=== PATIENT | male | born 1935 | race Caucasian/White ===

== ENCOUNTER 2019-12-28 14:05 | Inpatient (IN) | payer OTHER ==
[~2019-12-28] VITALS: Ht 170.2 cm; Wt 77.6 kg
[2019-12-28 14:50] LABS: Basophils # (auto) 0.1 10 ^3/uL (0-0.2); Basophils % (auto) 0.6 % (0.0-2.0); Eosinophils # (auto) 0.1 10 ^3/uL (0-0.8); Eosinophils % (auto) 0.5 % (0.0-7.0); Hematocrit 38.5 % (41.0-53.0); Lymphocytes # (auto) 1.9 10 ^3/uL (0.4-5.4); Lymphocytes % (auto) 16.1 % (10.0-50.0); Mean Corpuscular Hgb Conc. 33.7 g/dL (32.0-36.0); Mean Corpuscular Volume 91.9 fL (80.0-100.0); Monocytes # (auto) 0.6 10 ^3/uL (0-1.3); Monocytes % (auto) 5.4 % (0.0-12.0); Neutrophils % (auto) 77.4 % (37.0-80.0); Platelet Count (auto) 335 10^3/uL (140-450); Red Blood Cells 4.19 10^6/uL (4.5-5.90); Red Cell Distribution Width 13.9 % (11.8-14.3); White Blood Cell 11.6 10^3/uL (4.4-10.8)
[2019-12-28 15:09] LABS: INR 1.13 (0.9-1.15); Partial Thromboplastin Time 29.4 sec (23.64-32.05); Potassium 4.7 mmol/L (3.5-5.1)
[2019-12-28 15:13] LABS: Albumin 3.3 g/dL (3.4-5.0); BUN/Creatinine Ratio 23.9; Calcium 9.3 mg/dL (8.5-10.1)
[2019-12-28 15:18] LABS: Bilirubin, Total 0.4 mg/dL (0.2-1.0); Total Protein 7.9 g/dL (6.4-8.2)
[2019-12-28] MEDS ORDERED: HEPARIN DRIP/D5W 100UNITS/ML 250 ML IV SCH (16:27)
[2019-12-28] MEDS ORDERED: MORPHINE SULF INJ 2 MG/ML SYRINGE 1ML IV ONE (16:30)
[2019-12-28] MEDS ORDERED: HEPARIN SODIUM (PORCINE) 5000 UNITS/ML 1ML VIAL IV ONE (16:30)
[2019-12-28] MEDS ORDERED: ONDANSETRON HCL 4 MG/2 ML VIAL IV ONE (16:30)
[2019-12-28] MEDS ORDERED: CLOPIDOGREL 300 MG TAB PO ONE (16:30)
[2019-12-28] MEDS ORDERED: CLOPIDOGREL 300 MG TAB ONE (16:31)
[2019-12-28] MEDS: CLOPIDOGREL BISULFATE 75 MG TAB PO SCH (16:34)
[2019-12-28] MEDS ORDERED: ONDANSETRON HCL 4 MG/2 ML VIAL IV PRN (17:00)
[2019-12-28] MEDS ORDERED: HYDROcodone-ACET 5/325MG TAB PO PRN (17:00)
[2019-12-28] MEDS ORDERED: NITROGLYCERIN 0.4 MG SL TAB SL PRN (17:00)
[2019-12-28] MEDS ORDERED: MORPHINE SULF INJ 2 MG/ML SYRINGE 1ML IV PRN ×2 (17:00)
--- NOTE | 2019-12-28 17:04 | NUR ---
Hospitalist paged at this time. New orders received.
--- NOTE | 2019-12-28 18:03 | NUR ---
Telemetry admit from ER: SALVATORE FALCON admitted to Telemetry unit after SBAR received. Patient oriented to BHAVANA BAIRD, RN primary RN, unit, room, bed, and unit policies regarding patient care and visiting hours. Patient now on continuous telemetry monitoring, tele box # 50. Patient placed on bedside oxygen 2 lpm, patient stated weight and encouraged to call if they need something. All questions and concerns addressed, patient verbalized understanding. VS- temp- 97.6, 20 RR, 96% O2, 162/77 BP, 72 heart rate.
--- NOTE | 2019-12-28 18:34 | NUR ---
CRITICAL Critical Trop- 7.24 Paged medical transcription radiology hospitalist- Ralph Whiteside [employer] notified Paged Dr. Jones, awaiting call back.
[2019-12-28] MEDS: NITROGLYCERIN 50MG/250ML 250 ML IV SCH (19:15)
--- NOTE | 2019-12-28 19:40 | NUR ---
Ralph Whiteside [employer] at bedside. He requested a current 12 lead EKG. EKG performed. Ralph stated that there are no changes form previous EKG but still wont the patient to be transferred to [facility]. Waiting on bed availability. Pt states chest pain is remaining a tolerable /10. Will continue to monitor.
--- NOTE | 2019-12-28 19:44 | NUR ---
Closing note: Patient resting in bed, no S/S of SOB or distress. Chest pain 3/10 at this time. Care endorsed to NOC RN.
[2019-12-28] MEDS: SODIUM CHLORIDE 0.9% 1,000 ML IV SCH (20:01)
[2019-12-28] MEDS: METOPROLOL TARTRATE 25 MG TAB PO SCH (21:26)
[2019-12-28 22:00] VITALS: BP 128/70
--- NOTE | 2019-12-28 23:00 | NUR ---
Pt transferred to [facility] from Tele Report given to [facility] RN then patient moved to room 263 via bed. Pt had no S/S of distress during transfer. Patient states chest pain still 3/10. Family took all patient belongings home before transfer.
[2019-12-28 23:33] LABS: INR 1.13 (0.9-1.15)
[2019-12-28 23:34] LABS: Partial Thromboplastin Time 75.3 sec (23.64-32.05)
--- NOTE | 2019-12-28 23:35 | NUR ---
LAB PTT 75.3 RESULT. NO CHANGE. ORDER ALSO TO STOP PTT AT 5 AM PER MD INFO RELAYED BY NEWSPAPER CLIPPER.
[2019-12-29] VITALS (15 sets, daily range): BP systolic 101–126; BP diastolic 57–79
--- NOTE | 2019-12-29 03:34 | NUR ---
PT APPEARS TO BE RESTING NO S/S OF RESPIRATOR DISTRESS. WILL CONTINUE TO MONITOR.
--- NOTE | 2019-12-29 04:58 | NUR ---
PT- NO BED BATH DENIES WANTING A BATH OR NEW LINEN. WILL MONITOR.
--- NOTE | 2019-12-29 06:24 | NUR ---
MD CALLED TO CLARIFY WHETHER PT GOING TO [facility] AND INFORM ON LAST TROPONIN LEVEL.
--- NOTE | 2019-12-29 07:27 | NUR ---
ENDORSED CARE TO DAY RN PATIENT AWAKE AND WATCHING TELEVISION. NO S/S OF RESP DISTRESS.
--- NOTE | 2019-12-29 07:36 | NUR ---
: Spoke to Dr Jones via phone. Updated MD on labs. Orders received. Plan for cathlab at 1100.
--- NOTE | 2019-12-29 07:45 | NUR ---
OPENING SHIFT NOTE: Received report from NOC RNAkhil. Received patient lying in bed, no S/S of pain. Patient is A&Ox4 and denies pain. Patient on bedside monitor with alarms in place. Patient on 2L NC with O2 sats 95%. Patient currently NPO for left heart cath with Dr Soliman later today. Patient with IVF of NS running at 75ml/hr to left AC #20. Bed in lowest position, rails x2 up and call light within reach. Updated on plan of care. Will continue to monitor q1hr/PRN.
[2019-12-29] MEDS: SODIUM CHLORIDE 0.9% 1,000 ML IV SCH ×2 (08:35→21:06)
[2019-12-29] MEDS ORDERED: LIDOCAINE 2%HCL (LOCAL ANESTH.) INJ 20ML MDV ONE (08:52)
[2019-12-29] MEDS ORDERED: IODIXANOL 320MG/ML 100ML BTL IV ONE (08:53)
[2019-12-29] MEDS ORDERED: ANGIOMAX 250 MG VIAL IV ONE (08:56)
[2019-12-29] MEDS ORDERED: VERAPAMIL 2.5MG/ML INJ 2ML VIAL IV ONE (08:56)
[2019-12-29] MEDS ORDERED: MIDAZOLAM HCL 1MG/1ML-2 ML VIAL ONE (08:56)
[2019-12-29] MEDS ORDERED: SODIUM CHL 0.9% 50 ML ONE (08:56)
[2019-12-29] MEDS ORDERED: fentaNYL CITRATE 100 MCG/2 ML VL ONE (08:56)
--- NOTE | 2019-12-29 08:58 | NUR ---
CATHLAB: Patient taken to cathlab via bed on satellite project site monitor.
--- NOTE | 2019-12-29 10:19 | NUR ---
REPORT CALLED TO PCN. PT TO [facility] ON MONITOR WITH 2 RNS. PT DENIES DISTRESS. VASC BAND IN PLACE. NO SIGNS OF BLEEDING +PMSC. NAD NOTED.
--- NOTE | 2019-12-29 10:39 | NUR ---
Patient returned from cathlab via bed on electronic device monitor. Safeguard band to left wrist with 12ml air in place. No signs of bleeding noted. Patient A&Ox4, denies pain. Place back on bedside monitors and alarms in place. Will continue to monitor.
--- NOTE | 2019-12-29 10:57 | NUR ---
Started to remove air from safeguard band 1ml at a time. No S/S bleeding noted.
--- NOTE | 2019-12-29 11:18 | NUR ---
Removed 1ml of air from safeguard band. No S/S of bleeding noted. Patient with good capillary refill to fingers on left hand.
[2019-12-29] MEDS ORDERED: SODIUM CHLORIDE 0.9% 1,000 ML IV SCH (11:30)
--- NOTE | 2019-12-29 11:45 | NUR ---
Dr Clark at bedside to see patient. Orders received.
[2019-12-29 12:03] LABS: Basophils # (auto) 0.1 10 ^3/uL (0-0.2); Eosinophils # (auto) 0.1 10 ^3/uL (0-0.8); Eosinophils % (auto) 1.1 % (0.0-7.0); Hematocrit 42.9 % (41.0-53.0); Hemoglobin 14.1 g/dL (13.5-17.5); Lymphocytes # (auto) 3.7 10 ^3/uL (0.4-5.4); Lymphocytes % (auto) 29.5 % (10.0-50.0); Mean Corpuscular Hemoglobin 30.9 pg (28.0-32.0); Mean Corpuscular Hgb Conc. 32.9 g/dL (32.0-36.0); Mean Corpuscular Volume 93.8 fL (80.0-100.0); Monocytes % (auto) 7.9 % (0.0-12.0); Neutrophils # (auto) 7.5 10 ^3/uL (1.6-8.6); Neutrophils % (auto) 60.5 % (37.0-80.0); Nucleated Red Blood Cells % 0.1 %; Platelet Count (auto) 330 10^3/uL (140-450); Red Blood Cells 4.57 10^6/uL (4.5-5.90); Red Cell Distribution Width 14.5 % (11.8-14.3); White Blood Cell 12.4 10^3/uL (4.4-10.8)
[2019-12-29 12:22] LABS: BUN/Creatinine Ratio 23.2; Calcium 9.2 mg/dL (8.5-10.1); Magnesium 2.3 mg/dL (1.6-2.6); Potassium 5.3 mmol/L (3.5-5.1)
--- NOTE | 2019-12-29 12:28 | NUR ---
Dr Yamilet Costa to see patient. wants to wait to see if creatine improves before inserting a reid catheter.
[2019-12-29] MEDS: CLOPIDOGREL BISULFATE 75 MG TAB PO SCH (12:34)
[2019-12-29] MEDS: RANOLAZINE ER 500 MG TAB PO SCH ×2 (12:34→21:00)
[2019-12-29] MEDS: METOPROLOL TARTRATE 25 MG TAB PO SCH ×2 (12:35→21:06)
[2019-12-29] MEDS: ASPirin 81 mg TAB PO SCH (12:35)
--- NOTE | 2019-12-29 13:00 | NUR ---
Safeguard fully deflated. No S/S of bleeding noted. Safeguard removed and dry dressing placed.
[2019-12-29 13:04] LABS: Urine Bacteria NONE SEEN /hpf (None Seen); Urine Blood Negative /uL (Negative); Urine Specific Gravity 1.011 (1.001-1.035); Urine WBC <1 /hpf (0 - 3)
[2019-12-29 13:13] LABS: Protein, Urine 23.5 mg/dL (0.0-11.9)
[2019-12-29] MEDS ORDERED: SODIUM ZIRCONIUM CYCL 10 GM PAK PO ONE (15:30)
--- NOTE | 2019-12-29 15:36 | NUR ---
T/C from Dr Yamilet Costa. wants patient to have reid catheter. RN attempted twice, first with 16fr then with 14fr and met resistance upon insertion each time. Paged Dr Yamilet Costa and left voicemail. Patient still can void via urinal without difficulty. Patient able to void via urinal and had ~600ml output. Bladder scan post void noted 138ml. Will continue to monitor.
--- NOTE | 2019-12-29 17:08 | NUR ---
Patient resting in bed. No S/S of distress. Will continue to monitor.
--- NOTE | 2019-12-29 18:57 | NUR ---
END OF SHIFT NOTE: Patient sitting up in bed after eating dinner. No S/S of distress. Patient remains A&Ox4 and denies pain. Patient on bedside monitor with alarms in place. Patient with IVF of NS running at 75ml/hr. Patient still voiding via urinal and unable to start a reid catheter. Patient pending urology consult. Report to be given to oncoming RN.
[2019-12-29] MEDS: NITROGLYCERIN 50MG/250ML 250 ML IV SCH (19:15)
--- NOTE | 2019-12-29 19:52 | NUR ---
received report from day rn poc reviewed
[2019-12-29] MEDS ORDERED: ATORVASTATIN 20 MG TAB PO SCH (22:00)
[2019-12-30 00:01] VITALS: BP 96/58
--- NOTE | 2019-12-30 00:55 | NUR ---
RESTING WITH EYES CLOSED RESP EVEN AND UNLABORED, NO C/O PAIN OR DISCOMFORT
--- NOTE | 2019-12-30 05:52 | NUR ---
UP TO [facility] URINE OUTPUT 800 NO C/O PAIN OR DISCOMFORT
--- NOTE | 2019-12-30 06:34 | NUR ---
AWOKE RESP EVEN AND UNLABORED, CALL LIGHT WITHIN REACH, DENIES PAIN OR DISCOMFORT
--- NOTE | 2019-12-30 06:53 | NUR ---
REPORT GIVEN TO AM NURSE POC REVIEWED
[2019-12-30 07:30] VITALS: BP 138/81
--- NOTE | 2019-12-30 07:30 | NUR ---
Opening Shift Note Assumed care of patient, awake and alert. No S/S of distress/SOB or pain. Patient saturation 98% at 2 LPM oxygen via nasal cannula, decreased to 1 LPM, will continue to monitor. LT wrist dressing dry and intact, no bruising, hematoma or signs of bleeding noted, palpable radial pulses. See interventions for complete assessment. Bed locked on low position, side rails up x2, bed alarms on at all times, call muñoz within reach, instructed on POC and to call for assist PRN, will continue to monitor for changes Q1hr and PRN.
[2019-12-30 07:36] LABS: Basophils # (auto) 0.1 10 ^3/uL (0-0.2); Basophils % (auto) 1.1 % (0.0-2.0); Eosinophils # (auto) 0.3 10 ^3/uL (0-0.8); Eosinophils % (auto) 2.4 % (0.0-7.0); Hematocrit 40.2 % (41.0-53.0); Hemoglobin 13.6 g/dL (13.5-17.5); Lymphocytes # (auto) 2.5 10 ^3/uL (0.4-5.4); Mean Corpuscular Hemoglobin 31.1 pg (28.0-32.0); Mean Corpuscular Volume 91.5 fL (80.0-100.0); Monocytes % (auto) 9.5 % (0.0-12.0); Neutrophils # (auto) 6.5 10 ^3/uL (1.6-8.6); Platelet Count (auto) 262 10^3/uL (140-450); Red Blood Cells 4.39 10^6/uL (4.5-5.90); Red Cell Distribution Width 14.7 % (11.8-14.3); White Blood Cell 10.4 10^3/uL (4.4-10.8)
[2019-12-30 07:49] LABS: Calcium 8.9 mg/dL (8.5-10.1); Potassium 4.9 mmol/L (3.5-5.1)
[2019-12-30 07:57] LABS: BUN/Creatinine Ratio 24.4; Magnesium 2.1 mg/dL (1.6-2.6); Phosphorus 2.7 mg/dL (2.5-4.90)
[2019-12-30] MEDS: ASPirin 81 mg TAB PO SCH (09:26)
[2019-12-30] MEDS: RANOLAZINE ER 500 MG TAB PO SCH (09:26)
[2019-12-30] MEDS: CLOPIDOGREL BISULFATE 75 MG TAB PO SCH (09:27)
[2019-12-30] MEDS: METOPROLOL TARTRATE 25 MG TAB PO SCH (09:27)
[2019-12-30] MEDS ORDERED: ASPI81CH43 PO (11:44)
[2019-12-30] MEDS ORDERED: MET25T PO (11:44)
[2019-12-30] MEDS ORDERED: CLOP75TA28 PO (11:44)
[2019-12-30] MEDS ORDERED: RANO500T PO (11:44)
[2019-12-30] MEDS ORDERED: ATOR20TA50 PO (11:44)
[2019-12-30] MEDS ORDERED: SODIUM BICARBONATE 50ML VIAL 50 ML in SOD CHL 0.45% 1,000 ML IV SCH ×2 (11:45→12:30)
[2019-12-30 11:48] VITALS: BP 126/69
--- NOTE | 2019-12-30 12:19 | NUR ---
Dr Robert Meredith at bedside, updated on patient's status. Patient seen and examined. Plan to discharge patient today.
--- NOTE | 2019-12-30 14:00 | NUR ---
Patient's oxygen discontinued, saturation 92% to 96%, will continue to monitor.
--- NOTE | 2019-12-30 14:08 | NUR ---
Called Dr Tello Perez's office, spoke to Olivia regarding patient's follow-up appointment. Per Olivia, unable to schedule patient at this time, pending authorization from patient's PCP. Patient informed and verbalized understanding.
--- NOTE | 2019-12-30 14:11 | NUR ---
Called Dr Edmundo Soliman's office, spoke to Aleksandra regarding patient's follow-up appointment. Per Aleksandra, unable to schedule patient at this time, pending authorization from PCP. Patient informed to get authorization and call office to schedule, verbalized understanding.
--- NOTE | 2019-12-30 15:12 | NUR ---
assessment Patient is a 84 year old male who is alert and oriented. Patients cognitive abilities are intact. Prior to admission patient lived home with family and functioned independently. Patient informed me he is able to care for his own ADLs. Patients PCP is Dr Juarez. Patient has a fww, but does not use it. Patient has a ss consult for home health. Patient agrees. Per patient he will return home to his prior living arrangements post discharge and family will transport him home. I informed patient he has a right to speak to a social work therapist regarding all care. I informed patient he has a right to participate in any and all discharge planning. Patient does not have a POA and advanced directive. I have offered patient information on POA and advanced directives. I informed the patient the advantages and benefits of having an Advanced Directive. Patient verbalized understanding and agreed to discharge plan. Addendum: 12/30/19 at 1514 by Senia MIRANDA Amended: Links added.
[2019-12-30 15:57] VITALS: BP 136/75
[2019-12-30 16:00] VITALS: BP 136/75
--- NOTE | 2019-12-30 16:10 | NUR ---
Received call from Dr Soliman, updated on patient's status. MD verbalized understanding and states "Patient is cleared to go home, home medications Aspirin 81mg PO daily and Plavix 75 mg PO daily." Orders read back and verified. Will facilitate discharge.
--- NOTE | 2019-12-30 16:25 | NUR ---
[facility] transplant case manager regarding patient's home health and Janet Gann called back stating "It's going to be [facility], telephone number [phone].
--- NOTE | 2019-12-30 16:26 | NUR ---
Social Service consult regarding resuming Home Health. Pt was previously on service with [facility] and will be resuming with this service upon discharge. Lisy contacted and information faxed to [facility]. Information received and services to resume upon discharge. Will notify covering nurse and EVIE II of the above.
--- NOTE | 2019-12-30 16:27 | NUR ---
I let Nurse Jodi know that [facility]da [facility] will be following patient-provided her with phone number [phone] to give to patient/family.
--- NOTE | 2019-12-30 17:00 | NUR ---
Discharge packet and instructions given to patient and verbalized understanding. Patient property management form signed by patient.
--- NOTE | 2019-12-30 17:15 | NUR ---
IV removal IV discontinued with sterile technique, catheter fully intact. Pressure dressing applied to site. Patient tolerated procedure well. Discharged with aftercare instructions per MD.
--- NOTE | 2019-12-30 17:35 | NUR ---
Discharge instructions given as ordered. Encourage to follow up with PMD as instructed. All questions and concerns addressed. Patient verbalized understanding. Patient taken to vehicle via wheelchair with all personal belongings including wrist watch with white metal bracelet and yellow metal ring, accompanied by Denise CONROY. No distress noted at time of departure.
== END 2019-12-30 17:55 | disposition home health service (06) | DRG 246 ==
LOC: EDBD 14:05 → ER 14:05 → TELE-WESTW 14:06 → DOU IN ICU 22:57
PROVIDERS: ADMIT Internal Medicine; ATTEND Internal Medicine
PROC: 027034Z Dilation of Coronary Artery, One Artery with Drug-eluting Intraluminal Device, Percutaneous Approach (ICD-10-PCS; principal; 2019-12-29)
PROC: 4A023N7 Measurement of Cardiac Sampling and Pressure, Left Heart, Percutaneous Approach (ICD-10-PCS; 2019-12-29)
PROC: B2111ZZ Fluoroscopy of Multiple Coronary Arteries using Low Osmolar Contrast (ICD-10-PCS; 2019-12-29)
DX: T82.855A Stenosis of coronary artery stent, initial encounter (principal); I21.4 Non-ST elevation (NSTEMI) myocardial infarction; N17.0 Acute kidney failure with tubular necrosis; D63.1 Anemia in chronic kidney disease; E78.5 Hyperlipidemia, unspecified; I13.10 Hypertensive heart and chronic kidney disease without heart failure, with stage 1 through stage 4 chronic kidney disease, or unspecified chronic kidney disease; I25.10 Atherosclerotic heart disease of native coronary artery without angina pectoris; I45.10 Unspecified right bundle-branch block; N18.3 Chronic kidney disease, stage 3 (moderate); Y83.8 Other surgical procedures as the cause of abnormal reaction of the patient, or of later complication, without mention of misadventure at the time of the procedure; Y92.89 Other specified places as the place of occurrence of the external cause; Z80.0 Family history of malignant neoplasm of digestive organs; Z85.46 Personal history of malignant neoplasm of prostate; Z87.891 Personal history of nicotine dependence
CPT/HCPCS: 36415; 71045; 76775; 80048; 80053; 81001; 82570; 83036; 83735; 83880; 84100; 84156; 84300; 84484; 85025; 85610; 85730; 93005; 93306; 96374; 96375; 99152; 99153; 99291; C1887; G0378; J2250; J2405; Q9967

== ENCOUNTER 2021-03-19 03:23 | Emergency (ER) | payer OTHER ==
[~2021-03-19] VITALS: Ht 180.3 cm; Wt 86.2 kg
[~2021-03-19 03:23] MED LIST: ASPI81CH43 PO; ATOR20TA50 PO; CLOP75TA28 PO; MET25T PO; RANO500T PO
[2021-03-19 07:13] LABS: Basophils # (auto) 0.1 10 ^3/uL (0-0.2); Basophils % (auto) 0.9 % (0.0-2.0); Eosinophils # (auto) 0.2 10 ^3/uL (0-0.8); Hematocrit 41.3 % (41.0-53.0); Hemoglobin 14.1 g/dL (13.5-17.5); Lymphocytes # (auto) 4.1 10 ^3/uL (0.4-5.4); Lymphocytes % (auto) 26.5 % (10.0-50.0); Mean Corpuscular Hemoglobin 32.1 pg (28.0-32.0); Mean Corpuscular Hgb Conc. 34.1 g/dL (32.0-36.0); Mean Corpuscular Volume 94.3 fL (80.0-100.0); Monocytes % (auto) 6.6 % (0.0-12.0); Nucleated Red Blood Cells % 0.1 %; Platelet Count (auto) 312 10^3/uL (140-450); Red Blood Cells 4.37 10^6/uL (4.5-5.90); Red Cell Distribution Width 14.3 % (11.8-14.3); White Blood Cell 15.4 10^3/uL (4.4-10.8)
[2021-03-19 07:41] LABS: Albumin 3.7 g/dL (3.4-5.0); Anion Gap 8 (5-15); Blood Urea Nitrogen 35 mg/dL (7-18); Calcium 9.1 mg/dL (8.5-10.1); Carbon Dioxide 21 mmol/L (21-32); Chloride 108 mmol/L (98-107); Glucose 106 mg/dL (74-106); Magnesium 2.6 mg/dL (1.6-2.6); Potassium 5.1 mmol/L (3.5-5.1); Sodium 137 mmol/L (136-145)
[2021-03-19 07:47] LABS: Alanine Aminotransferase 24 U/L (16-61); Alkaline Phosphatase 82 U/L (45-117); Aspartate Aminotransferase 27 U/L (15-37); Bilirubin, Total 0.6 mg/dL (0.2-1.0); GFR African American 53 mL/min; GFR Non-African American 44 mL/min; Total Protein 7.9 g/dL (6.4-8.2)
[2021-03-19 07:48] LABS: INR 1.01 (0.9-1.15); Partial Thromboplastin Time 26.6 sec (23.0-31.2)
[2021-03-19 08:19] VITALS: BP 122/71
== END 2021-03-19 08:20 | disposition home or self-care (01) ==
LOC: ER 03:23 → EDBD 03:23 → ER 08:20
DX: R07.89 Other chest pain (principal); R00.2 Palpitations; I10 Essential (primary) hypertension; E78.5 Hyperlipidemia, unspecified; I25.10 Atherosclerotic heart disease of native coronary artery without angina pectoris; Z86.73 Personal history of transient ischemic attack (TIA), and cerebral infarction without residual deficits; Z79.82 Long term (current) use of aspirin; Z79.01 Long term (current) use of anticoagulants; Z79.899 Other long term (current) drug therapy
CPT/HCPCS: 36415; 71045; 80053; 83735; 83880; 84484; 85025; 85610; 85730; 93005

== ENCOUNTER 2024-02-07 17:34 | Emergency (ER) | payer BC, OTHER ==
[~2024-02-07] VITALS: Ht 170.2 cm; Wt 70.0 kg
[2024-02-07 19:38] VITALS: BP 140/97; PULSE 80; RESP 18; TEMP 98.7; O2SAT 95
== END 2024-02-07 19:41 | disposition home or self-care (01) ==
LOC: ER 17:34
DX: E78.5 Hyperlipidemia, unspecified (principal); I10 Essential (primary) hypertension; R42 Dizziness and giddiness; Z48.00 Encounter for change or removal of nonsurgical wound dressing; Z48.817 Encounter for surgical aftercare following surgery on the skin and subcutaneous tissue; Z86.73 Personal history of transient ischemic attack (TIA), and cerebral infarction without residual deficits
CPT/HCPCS: 70450; 72125

== ENCOUNTER 2024-02-08 02:37 | Emergency (ER) | payer BC ==
[~2024-02-08] VITALS: Ht 170.2 cm; Wt 70.0 kg
[2024-02-08 03:30] VITALS: PULSE 79; RESP 17; O2SAT 95
[2024-02-08 03:34] VITALS: BP 141/96; PULSE 79; RESP 17; O2SAT 95
== END 2024-02-08 04:37 | disposition home or self-care (01) ==
LOC: ER 02:37
DX: T81.89XD Other complications of procedures, not elsewhere classified, subsequent encounter (principal); I10 Essential (primary) hypertension; I25.10 Atherosclerotic heart disease of native coronary artery without angina pectoris; I25.2 Old myocardial infarction; E78.5 Hyperlipidemia, unspecified; Z48.01 Encounter for change or removal of surgical wound dressing; Z86.73 Personal history of transient ischemic attack (TIA), and cerebral infarction without residual deficits; Z85.9 Personal history of malignant neoplasm, unspecified; Z98.890 Other specified postprocedural states; Z79.899 Other long term (current) drug therapy; Y92.89 Other specified places as the place of occurrence of the external cause

== ENCOUNTER 2024-06-10 09:44 | Emergency (ER) | payer BC ==
[~2024-06-10] VITALS: Ht 170.2 cm; Wt 65.5 kg
[2024-06-10] MEDS: LIDOCAINE 2% TOPICAL JELLY 5 ML URJT TOP ONE (13:55)
[2024-06-10] MEDS: TETANUS-DIPTH-ACEL PERTUSSIS 0.5ML SYR Tdap IM ONE (14:08)
[2024-06-10] MEDS: SILVER NITRATE-POTAS NITRA STICK TOP ONE (14:30)
[2024-06-10] MEDS ORDERED: CEPH250C PO (14:32)
[2024-06-10] MEDS: CEPHALEXIN 250 MG CAP PO ONE (14:38)
[2024-06-10 14:53] VITALS: BP 140/85; PULSE 80; RESP 18; TEMP 97.9; O2SAT 98
== END 2024-06-10 14:58 | disposition home or self-care (01) ==
LOC: ER 09:44
DX: S51.012A Laceration without foreign body of left elbow, initial encounter (principal); I10 Essential (primary) hypertension; I25.2 Old myocardial infarction; E78.5 Hyperlipidemia, unspecified; I25.10 Atherosclerotic heart disease of native coronary artery without angina pectoris; Z86.73 Personal history of transient ischemic attack (TIA), and cerebral infarction without residual deficits; Z85.9 Personal history of malignant neoplasm, unspecified; Z98.890 Other specified postprocedural states; Z79.899 Other long term (current) drug therapy; W17.89XA Other fall from one level to another, initial encounter; Y93.89 Activity, other specified; Y92.89 Other specified places as the place of occurrence of the external cause; Y99.8 Other external cause status
CPT/HCPCS: 73090; 73120; 90471; 90715